=== PATIENT | male | born 1985 | race Caucasian/White ===

== ENCOUNTER 2019-08-29 13:38 | Emergency (ER) | payer OTHER ==
[2019-08-29] MEDS ORDERED: IBUPROFEN 600 MG TAB PO STA (14:31)
--- NOTE | 2019-08-29 14:36 | ED ---
General Adult HPI - General Chief complaint: Urogenital Stated complaint: testicular pain Time Seen by Provider: 08/29/19 14:03 Source: patient, RN notes reviewed Mode of arrival: ambulatory Limitations: no limitations - History of Present Illness Initial comments: 33-year-old male presents to the emergency department for a chief complaint of testicular pain. Patient has had right testicular pain for about 1 month. States that has come and gone. This over the past week it has worsened. Patient states the pain starts in his testicle and does kind of radiated up to his pelvis. However he denies any significant abdominal pain. Denies any fevers or chills. Denies any nausea vomiting diarrhea. Denies any penile drainage. Denies dysuria. Patient's sister is concerned he may have appendicitis. Patient was seen at [facility] 2 days ago and had an ultrasound of the scrotum demonstrating hydrocele.Patient has no other complaints at this time including shortness of breath, chest pain, abdominal pain, nausea or vomiting, headache, or visual changes. - Related Data Home Medications Medication Instructions Recorded Confirmed ARIPiprazole [Abilify] 5 mg PO HS 08/29/19 08/29/19 Vortioxetine Hydrobromide 10 mg PO DAILY 08/29/19 08/29/19 [Trintellix] clonazePAM [KlonoPIN] 0.5 mg PO BID 08/29/19 08/29/19 Allergies Allergy/AdvReac Type Severity Reaction Status Date / Time No Known Allergies Allergy Verified 08/29/19 17:05 Review of Systems ROS Statement: Those systems with pertinent positive or pertinent negative responses have been documented in the HPI. ROS Other: All systems not noted in ROS Statement are negative. Past Medical History Past Medical History: No Reported History History of Any Multi-Drug Resistant Organisms: None Reported Past Surgical History: No Surgical Hx Reported Past Psychological History: Anxiety Smoking Status: Current every day smoker Past Alcohol Use History: Rare Past Drug Use History: None Reported General Exam Limitations: no limitations General appearance: alert, in no apparent distress Head exam: Present: atraumatic, normocephalic, normal inspection Eye exam: Present: normal appearance, PERRL, EOMI. Absent: scleral icterus, conjunctival injection, periorbital swelling ENT exam: Present: normal exam, mucous membranes moist Neck exam: Present: normal inspection, full ROM. Absent: tenderness, meningismus, lymphadenopathy Respiratory exam: Present: normal lung sounds bilaterally. Absent: respiratory distress, wheezes, rales, rhonchi, stridor Cardiovascular Exam: Present: regular rate, normal rhythm, normal heart sounds. Absent: systolic murmur, diastolic murmur, rubs, gallop, clicks GI/Abdominal exam: Present: soft, normal bowel sounds. Absent: distended, tenderness (No abdominal tenderness whatsoever), guarding, rebound, rigid Expanded GI/Abdominal exam: Absent: psoas sign, obturator sign, heel tap sign, Hendrickson's sign, Rovsing's sign, tenderness at McBurney's Point, ascites exam: Present: normal inspection, other (Zeynep Kaur RN present as preschool director for exam). Absent: testicular tenderness, urethral discharge, scrotal swelling, vertical testicular lie, circumcision Neurological exam: Present: alert Course Vital Signs 08/29/19 08/29/19 13:40 15:49 Temperature 97.5 F L Pulse Rate 79 Respiratory 18 18 Rate Blood Pressure 123/68 O2 Sat by Pulse 98 Oximetry Medical Decision Making - Medical Decision Making Patient presents for right testicular pain. This has been ongoing for the past month, worsening in the past week. Patient denies nausea vomiting, abdominal pain, diarrhea, fever, dysuria. Patient sister is concerned for appendicitis however on exam there is no abdominal tenderness. Negative obturator sign. No McBurney point tenderness. No rebound tenderness. Patient is afebrile and well-appearing, I do not see any evidence for this being an appendicitis. I discussed risks versus benefits of CT with the patient given very low suspicion for any appendicitis source, and shared decision making was used to decide we will not do a CAT scan at this time. I did discuss return parameters that would indicate need for a CAT scan. I did obtain ultrasound report from [facility] 2 days ago as well as urinalysis which was negative. Gonorrhea chlamydia Trichomonas pending. Ultrasound report showed small to moderate bilateral hydroceles. There is some debris within the right hydrocelectomy represent some prior hemorrhage or purule nt material. I discussed this with Dr. Lim, at this time he feels that this warrants further workup. Therefore ultrasound will be repeated to compare images from [address] abdomen and pelvis will also be obtained. CT abdomen and pelvis with contrast shows a negative scan. CBC and CMP are unremarkable. Patient does not have leukocytosis. Scrotal ultrasound revealed mild bilateral hydroceles without torsion or mass. At this time is possible pain is secondary to hydrocele. Patient will follow up with urology closely. He'll return if he has any worsening symptoms. - Lab Data Result diagrams: 08/29/19 15:45 08/29/19 15:45 Lab Results 08/29/19 08/29/19 08/29/19 Range/Units 14:45 15:45 15:45 WBC 6.9 (3.8-10.6) k/uL RBC 5.56 (4.30-5.90) m/uL Hgb 15.8 (13.0-17.5) gm/dL Hct 47.9 (39.0-53.0) % MCV 86.2 (80.0-100.0) fL MCH 28.4 (25.0-35.0) pg MCHC 33.0 (31.0-37.0) g/dL RDW 11.8 (11.5-15.5) % Plt Count 194 (150-450) k/uL Neutrophils % 68 % Lymphocytes % 22 % Monocytes % 5 % Eosinophils % 1 % Basophils % 2 % Neutrophils # 4.7 (1.3-7.7) k/uL Lymphocytes # 1.5 (1.0-4.8) k/uL Monocytes # 0.4 (0-1.0) k/uL Eosinophils # 0.1 (0-0.7) k/uL Basophils # 0.1 (0-0.2) k/uL Sodium 142 (137-145) mmol/L Potassium 3.8 (3.5-5.1) mmol/L Chloride 108 H (98-107) mmol/L Carbon Dioxide 26 (22-30) mmol/L Anion Gap 8 mmol/L BUN 14 (9-20) mg/dL Creatinine 0.82 (0.66-1.25) mg/dL Est GFR (CKD-EPI)AfAm >90 (>60 ml/min/1.73 sqM) Est GFR (CKD-EPI)NonAf >90 (>60 ml/min/1.73 sqM) Glucose 88 (74-99) mg/dL Calcium 9.5 (8.4-10.2) mg/dL Total Bilirubin 0.5 (0.2-1.3) mg/dL AST 18 (17-59) U/L ALT 15 L (21-72) U/L Alkaline Phosphatase 51 (38-126) U/L Total Protein 6.9 (6.3-8.2) g/dL Albumin 4.4 (3.5-5.0) g/dL Urine Color Yellow Urine Appearance Clear (Clear) Urine pH 6.0 (5.0-8.0) Ur Specific [place] 1.018 (1.001-1.035) Urine Protein Negative (Negative) Urine Glucose (UA) Negative (Negative) Urine Ketones Negative (Negative) Urine Blood Negative (Negative) Urine Nitrite Negative (Negative) Urine Bilirubin Negative (Negative) Urine Urobilinogen <2.0 (<2.0) mg/dL Ur Leukocyte Esterase Negative (Negative) Disposition Clinical Impression: Testicular pain, right, Hydrocele Disposition: HOME SELF-CARE Condition: Good Instructions (If sedation given, give patient instructions): Hydrocele (ED), Testicle Pain (ED) Additional Instructions: Please follow up with urologist, call tomorrow to make an appointment based on their availability. If you have worsening symptoms or fevers return to the emergency department. Otherwise follow-up with primary care in 1-2 days. Is patient prescribed a controlled substance at d/c from ED?: No Referrals: Jean Galeana MD [Primary Care Provider] - 1-2 days Andre Frye MD [STAFF PHYSICIAN] - 1-2 days Time of Disposition: 17:16
[2019-08-29 14:57] LABS: Appearance,Urine Clear (Clear); Bilirubin,Urine Negative (Negative); Blood,Urine Negative (Negative); Color,Urine Yellow; Glucose,Urine (UA) Negative (Negative); Ketones,Urine Negative (Negative); Leukocyte Esterase,Urine Negative (Negative); Nitrite,Urine Negative (Negative); Protein,Urine Negative (Negative); Specific Gravity,Urine 1.018 (1.001-1.035); Urobilinogen,Urine <2.0 mg/dL (<2.0)
[2019-08-29 16:02] LABS: Basophils # (A) 0.1 k/uL (0-0.2); Basophils % (A) 2 %; Eosinophils # (A) 0.1 k/uL (0-0.7); Eosinophils % (A) 1 %; HCT 47.9 % (39.0-53.0); HGB 15.8 gm/dL (13.0-17.5); Lymphocytes # (A) 1.5 k/uL (1.0-4.8); Lymphocytes % (A) 22 %; MCH 28.4 pg (25.0-35.0); MCV 86.2 fL (80.0-100.0); Mean Platelet Volume 7.4; Monocytes # (A) 0.4 k/uL (0-1.0); Monocytes % (A) 5 %; Neutrophils # (A) 4.7 k/uL (1.3-7.7); Neutrophils % (A) 68 %; Platelet Count 194 k/uL (150-450); RBC 5.56 m/uL (4.30-5.90); RDW 11.8 % (11.5-15.5); WBC 6.9 k/uL (3.8-10.6)
[2019-08-29 16:07] LABS: ALT 15 U/L (21-72); AST 18 U/L (17-59); African American GFR (CKD) >90 (>60 ml/min/1.73 sqM); Albumin 4.4 g/dL (3.5-5.0); Alkaline Phosphatase 51 U/L (38-126); Anion Gap 8 mmol/L; Blood Urea Nitrogen 14 mg/dL (9-20); Calcium 9.5 mg/dL (8.4-10.2); Carbon Dioxide 26 mmol/L (22-30); Chloride 108 mmol/L (98-107); Glucose 88 mg/dL (74-99); Potassium 3.8 mmol/L (3.5-5.1); Sodium 142 mmol/L (137-145); Total Bilirubin 0.5 mg/dL (0.2-1.3); Total Protein 6.9 g/dL (6.3-8.2)
--- NOTE | 2019-08-29 16:13 | CT ---
EXAMINATION TYPE: CT abdomen pelvis w con DATE OF EXAM: 08/29/2019 COMPARISON: Testicular pain HISTORY: rt testicular pain x [address] DLP: 719 mGycm Automated exposure control for dose reduction was used. TECHNIQUE: Helical acquisition of images was performed from the lung bases through the pelvis. CONTRAST: Performed without Oral Contrast and with IV Contrast, patient injected with 100 mL of Isovue 300. FINDINGS: Heart size is normal. There is no pericardial effusion. Liver spleen stomach pancreas gallbladder appear normal. Bile ducts are not dilated. There is no adrenal mass. Kidneys show satisfactory contrast opacification. There is no hydronephrosi s. Ureters are not dilated. Bladder distends smoothly. There is no inguinal hernia. There is no free fluid in the pelvis. There is no mesenteric edema. There is no ascites or free air. There is no sign of a bowel obstructio n. Appendix is posterior and appears normal. Lumbar spine is intact. Bony pelvis is intact. IMPRESSION: NEGATIVE CT SCAN OF THE ABDOMEN PELVIS.
--- NOTE | 2019-08-29 16:52 | US ---
EXAMINATION TYPE: US scrotum with doppler. Grayscale and color Doppler Duplex imaging performed of t froylan scrotum. DATE OF EXAM: 08/29/2019 COMPARISON: NONE CLINICAL HISTORY: compare to US from 08/27/19, poss purulent materia. Previous ultrasound was at [facility]. EXAM MEASUREMENTS: TESTICLES: Right Testicle: 4.7 x 2.3 x 3.4 cm Left Testicle: 4.8 x 2.4 x 2.6 cm EPIDIDYMIS HEAD: Right Epididymis: 0.8 cm Left Epididymis: 0.9 cm Doppler performed to assess for testicular vascularity; good bilateral color flow and waveforms are s een. There is no evidence of testicular torsion. Presence of hydroceles: bilateral hydroceles, Rt: 4.2 x 0.7 x 1.1cm Lt: 2.9 x 1.1 x 1.9cm Presence of varicoceles: no IMPRESSION: There are mild bilateral hydroceles. No testicular torsion or mass. No epididymal mass.
[2019-08-29 17:25] VITALS: BP 121/71; PULSE 75; RESP 17; TEMP 97.8
[2019-08-31 13:57] LABS: C. trachomatis,PCR Negative (Neg,Equiv); Chlamydia trachomatis Source Urine
[2019-08-31 14:04] LABS: N. gonorrhoeae,PCR Negative (Neg,Equiv); Neisseria Source Urine
== END 2019-08-29 17:25 | disposition home or self-care (01) ==
LOC: EC 13:38
DX: N43.3 Hydrocele, unspecified (principal); F41.9 Anxiety disorder, unspecified; F17.200 Nicotine dependence, unspecified, uncomplicated; Z79.899 Other long term (current) drug therapy
CPT/HCPCS: 36415; 80053; 85025; 81003; 87491; 87591; 87661; 93975; 76870; 74177; 99284; Q9967